=== PATIENT | female | born 1945 | race Caucasian/White ===

== ENCOUNTER → 2017-11-15 | Outpatient (CLI) | payer MEDICARE, OTHER ==
[~2017-11-15] MED LIST: ADULT LOW DOSE81 MG PO; ANCEF 1GM1 GM/50 M2 IV; CELEXA40 MG PO; COUMADIN; COUMADIN 1MG TAB1 M1 PO; COUMADIN 4 MG TA4 M1 PO; COUMADIN 5 MG TA5 M1 PO; COUMADIN6 MG PO; DOXYCYCLINE 10100 M1 PO; ENOXAPARIN40 MG/0.4 SQ; ENOXAPARIN60 MG/0.6 SQ; FOSAMAX 70 MG T70 M1 PO; FOSAMAX 70 MG T70 MG PO; IMURAN 50MG TAB50 M1 PO; IRON325 PO; KETOCONAZOLE 2200 MG GT; KETOCONAZOLE 2200 MG OR; KLOR-CON PO; LASIX 20 MG TAB20 MG PO; LISINOPRIL-HCT1 EAC1 PO; MAG-OX 400 TAB400 M1 PO; METFORMIN HCL500 MG PO; NORCO 5-325 TA1 EACH PO; NORVASC 5 MG TAB5 MG PO; NORVASC5 MG PO; OXYBUTYNIN 5 MG5 M2 PO; OXYCODONE HCL 55 MG PO; PHENERGAN 25 MG25 M1 PO; PLAVIX 75 MG TA75 MG PO; PREDNISONE 20 M20 M1 PO; PREDNISONE 20 M20 MG PO; PRINZIDE 20-121 EACH PO; PROTONIX40 M1 PO; PROTONIX40 M2 PO; REGLAN; REGLAN 10 MG TA10 MG PO; SORIATANE10 MG; VICODIN 5-5001 EACH PO; ZOCOR 20 MG TAB20 M1 PO; ZOCOR20 MG PO; ZOFRAN ODT4 MG PO; warfarin
[2017-11-15 12:38] LABS: CREATININE 0.9 mg/dL (0.6-1.3)
--- NOTE | 2017-12-18 15:00 | NUR ---
ORDER RECEIVED TO DISHCARE PATIENT TO SELF CARE AT HOME. MED REC, MEDICATION EDUCATION, STROKE EDUATION AND NEED FOR FOLLOW UP APPOINTMENTS COVERED AND STATED UNDERSTOOD BY PATIENT. IV AND TELEMETRY PACK REMOVED AND PATINET IN NO APPARNET SIGNS OF DISTRESS. RIGHT GROIN ACCESS SITE CLEAN DRY INTACT WITH NO S/S OF HEMATOMA. LEFT LOWER EXTR PULSES ABLE TO BE ASSESSED BY DOPPLER. VASCULAR SURGERY AWARE AND SIGNED FOR DISHCARGE. PATINET TO DC WHEN FRIEND ARRIVES WITH CAR. HOURLY RONDING COMPLETD FOR PATIENT SAFETY.
== END ==
LOC: M.CT 12:07 → M.LAB 13:00 → M.CT 14:00
PROVIDERS: Surgery
DX: I70.212 Atherosclerosis of native arteries of extremities with intermittent claudication, left leg (principal); Z90.49 Acquired absence of other specified parts of digestive tract

== ENCOUNTER 2017-12-16 17:42 | Inpatient (IN) | payer MEDICARE, OTHER ==
[~2017-12-16] VITALS: Ht 165.1 cm; Wt 54.9 kg
[2017-12-16 18:04] VITALS: BP 116/70
[2017-12-16] MEDS ORDERED: PREDNISONE 20 M20 MG PO (18:10)
[2017-12-16] MEDS ORDERED: COUMADIN 4 MG TA4 M1 PO (18:11)
[2017-12-16] MEDS ORDERED: COUMADIN 5 MG TA5 M1 PO (18:11)
[2017-12-16 18:27] LABS: ABSOLUTE EOSINOPHILS 0.1 thou/uL (0.0-0.7); ABSOLUTE LYMPHOCYTES 1.2 thou/uL (0.8-5.3); ABSOLUTE MONOCYTES 0.7 thou/uL (0.0-1.2); ABSOLUTE NEUTROPHILS 7.2 thou/uL (1.6-8.1); BASOPHILS 0.3 %; EOSINOPHILS 1.2 %; HEMATOCRIT 30.4 % (37.0-47.0); HEMOGLOBIN 9.5 gm/dL (12.0-15.0); LYMPHOCYTES 12.5 %; MCH 21.7 pg (26.0-34.0); MCHC 31.4 g/dL (28.0-37.0); MONOCYTES 7.9 %; MPV 8.1 fl. (7.2-11.1); NUCLEATED RBCS 0 /100WBC; PLATELET COUNT* 254 thou/uL (150-400); POLYS 78.1 %; WBC 9.3 thou/uL (4.0-11.0)
[2017-12-16 18:36] LABS: APTT 30.6 Seconds (25.0-31.3); INR 2.7; PROTIME 26.1 Seconds (9.20-11.50)
[2017-12-16 18:43] LABS: ANION GAP 8 mmol/L (7-16); BUN 16 mg/dL (7-18); CALCIUM 8.9 mg/dL (8.5-10.1); CHLORIDE 105 mmol/L (98-107); CO2 29 mmol/L (21-32); CREATININE 0.9 mg/dL (0.6-1.3); GLUCOSE 120 mg/dL (70-99); SODIUM 142 mmol/L (136-145)
[2017-12-16 18:47] LABS: ALBUMIN 3.2 g/dL (3.4-5.0); ALKALINE PHOSPHATASE 93 U/L (46-116); SGOT 15 U/L (15-37); SGPT 27 U/L (30-65); TOTAL BILIRUBIN 0.4 mg/dL (<0.1-1.0); TOTAL PROTEIN 6.1 g/dL (6.4-8.2); TROPONIN-I LEVEL <0.06 ng/mL (<0.06)
[2017-12-16 19:05] LABS: ANISOCYTOSIS 1+; HYPOCHROMASIA 2+; LARGE PLATELETS OCCASIONAL; MICROCYTES 3+; OVALOCYTES Occasional; PLATELET ESTIMATE ADEQUATE
[2017-12-16 19:47] VITALS: BP 121/76
[2017-12-16 20:30] VITALS: BP 104/66
[2017-12-17 00:08] VITALS: BP 91/57
[2017-12-17 04:00] VITALS: BP 111/64
[2017-12-17 04:38] LABS: HEMATOCRIT 27.6 % (37.0-47.0); HEMOGLOBIN 8.7 gm/dL (12.0-15.0); MCH 21.8 pg (26.0-34.0); MCHC 31.6 g/dL (28.0-37.0); MCV 68.9 fL (80.0-100.0); MPV 8.1 fl. (7.2-11.1); RDW-CV 19.6 % (10.5-14.5); WBC 6.9 thou/uL (4.0-11.0)
[2017-12-17 04:47] LABS: INR 2.3; PROTIME 22.2 Seconds (9.20-11.50)
[2017-12-17 04:55] LABS: CALCIUM 8.4 mg/dL (8.5-10.1); CREATININE 0.8 mg/dL (0.6-1.3); MAGNESIUM 2.1 mg/dL (1.8-2.4); POTASSIUM 3.5 mmol/L (3.5-5.1)
--- NOTE | 2017-12-17 05:30 | NUR ---
RECIEVED REPORT FROM NATHALIA. PATIENT DID NOT SHOW SIGNS OF DISTRESS, PATIENT RESTED IN BED. NO ACUTE CHANGE TO PATIENT. PATIENT HAS NUMBNESS AND DISCOLORATION TO LEFT TOES. CALL TO DOCTOR HERBIE HERNANDEZ, REGARDING DIET ORDER, DOCTOR GAVE OKAY TO EAT BUT NPO PASS MIDNIGHT, DOCTOR ALSO ORDER HEPRAIN DRIP. CALL TO DOCTOR HERNANDEZ REGARDING CLARIFYING MED DUE TO INR, NO REPLY. CALL TO DOCTOR WU REGARDING MED, FULBRIGHT ORDER DRIP BUT NO BOLUS. PATIENT STILL HAS PLUSE IN FOOT. PATIENT DID NOT COMPLAIN OF PAIN OR SOB. CALL TO JAZMIN REGARDING COUMADIN, ORDERED TO HOLD.
[2017-12-17 08:00] VITALS: BP 104/67
[2017-12-17 11:27] VITALS: BP 105/66
--- NOTE | 2017-12-17 13:21 | EKG ---
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1945 Requested By: Stefany Silva Order Number: [id number] MD: Austen Quiroga Measurements Intervals [place] Rate: 102 P: 58 ID: 121 QRS: 21 QRSD: 76 T: 25 QT: 351 QTc: 458 Interpretive Statements Sinus tachycardia Low voltage, precordial leads Abnormal R-wave progression, early transition Borderline T abnormalities, anterior leads Compared to ECG 09/17/2015 15:10:46 T-wave abnormality now present Right ventricular hypertrophy no longer present Electronically Signed On 12-17-2017 13:20:41 CDT by Austen Quiroga [email or web address] <ELECTRONICALLY SIGNED> By: Austen Quiroga MD, FAC 12/17/17 1320 180 1803 Austen Quiroga MD, FAC /EPI
[2017-12-17 16:14] VITALS: BP 111/69
--- NOTE | 2017-12-17 19:34 | NUR ---
benjy resting in bed. left foot assessed frequently and vascular surgical consult completed today. possible angio tomorrow, after reassessment tomorrow. hourlky rounding completed for patient safety.
[2017-12-17 20:00] VITALS: BP 104/65
[2017-12-18] VITALS (8 sets, daily range): BP systolic 103–123; BP diastolic 58–77
--- NOTE | 2017-12-18 03:52 | NUR ---
PATIENT BLOOD SUGAR WAS ELEVATED, DOCTOR KRAIG NOTIFIED, SEE ORDERS.
[2017-12-18 05:06] LABS: HEMATOCRIT 25.8 % (37.0-47.0); HEMOGLOBIN 8.1 gm/dL (12.0-15.0); MCH 21.8 pg (26.0-34.0); MCHC 31.4 g/dL (28.0-37.0); MCV 69.3 fL (80.0-100.0); RBC 3.72 mil/uL (4.20-5.00); RDW-CV 19.7 % (10.5-14.5); WBC 6.1 thou/uL (4.0-11.0)
[2017-12-18 05:08] LABS: INR 1.7; PROTIME 16.1 Seconds (9.20-11.50)
[2017-12-18 05:17] LABS: CALCIUM 7.7 mg/dL (8.5-10.1); CREATININE 0.6 mg/dL (0.6-1.3); POTASSIUM 3.4 mmol/L (3.5-5.1)
--- NOTE | 2017-12-18 05:25 | NUR ---
PATIENT RESTED IN BED. NO ACUTE CHANGES, PATIENT DID NOT SHOW SIGNS OF DISTRESS. PATIENT IS NPO, FALL PRECAUTIONS IN PLACE, BED ALARM ON, CALL LIGHT WITHIN REACH, HOURLY ROUNDING OBSERVED.
--- NOTE | 2017-12-18 06:50 | NUR ---
PATIENT HAD BOWEL MOVEMENT.
--- NOTE | 2017-12-18 16:27 | NUR ---
WOUND NURSE: PATIENT SEEN FOR WOUND ASSESSMENT, BUT NO WOUNDS. DOES HAVE RASH PRESENT ON TRUNK. PATIENT WAS SEEN FOR ARTERIAL COMPLICATIONS ON THE LEFT LEG AND HAS SOME BLUISH-PURPLE DISCOLORATION OF THE LEFT DISTAL FOOT. CAP REFILL IS 3 SECONDS AND ABLE TO DOPPLER POSTERIOR TIBIAL AND DORSALIS PEDIS PULSE. NO WOUND INTERVENTION PROVIDED AT THIS TIME.
--- NOTE | 2018-01-14 15:17 | OP ---
[address] [address] OPERATIVE REPORT Name: ZBIGNIEW DAVID Room: [address] IN .R.#: [id number] Admission: 12/16/17 Attend Phys: David Davis, Discharge: 12/18/17 Date of : 49 Report #: [id number] THIS REPORT FOR: //name// CC: Liliane Davis DATE OF SERVICE: 12/18/2017 PREOPERATIVE DIAGNOSIS: Critical limb ischemia with thrombosis of left superficial femoral artery stents. POSTOPERATIVE DIAGNOSIS: Critical limb ischemia with thrombosis of left superficial femoral artery stents. PROCEDURE: 1. Ultrasound-guided access of right common femoral artery. 2. Diagnostic angiogram of the abdomen, pelvis and left lower extremity. 3. Drug-coated balloon angioplasty of the left superficial femoral artery x 3. 4. Balloon angioplasty of the left popliteal artery. 5. Completion angiogram of the left lower extremity. 6. Percutaneous closure of right common femoral artery with 6-Irish Angio-Seal closure device. SURGEON: Eliceo Rico MD ESTIMATED BLOOD LOSS: Minimal. COMPLICATIONS: None. 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 No clinically significant aortoiliac occlusive disease. High grade stenosis and multiple segments of the left superficial femoral artery stents. A 99% stenosis of behind knee popliteal artery with large atherosclerotic plaque. Patent below knee artery and tibioperoneal trunk with the anterior tibial artery extending down to the level of the ankle and the peroneal artery occluding distal to the ostium, with all of these vessels being severely diseased. DESCRIPTION OF PROCEDURE: The patient is a pleasant female who was recently admitted with skin changes to her toes on the left foot. 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 She has known occlusion of her right common and distal right common femoral artery as well as her left posterior tibial artery. After evaluation, she was offered a diagnostic angiogram. The risks, benefits, alternatives, and possible outcomes were discussed. She elected to proceed. Consent was obtained. The site was marked. She was taken to the OR and placed on the table in supine position. An appropriate timeout was called identifying the correct patient, procedure, [place] [address] OPERATIVE REPORT Name: ZBIGNIEW DAVID Room: [address]#: [id number] Admission: 12/16/17 Attend Phys: David Davis, Discharge: 12/18/17 Date of : 49 Report #: [id number] procedure side. Sedation and local anesthetic were used throughout the entirety of the procedure. Her bilateral groins were prepped and draped in the usual sterile fashion. Local anesthetic was injected with ultrasound guidance. I was able to cannulate the midportion of the right common femoral artery with a micro needle and a microwire. A microsheath was easily placed after appropriate placement was confirmed on fluoroscopy. I then upsized this to a 6-Irish sheath over a Glidewire Advantage. I introduced the flush catheter into the distal aorta and performed an aortogram. This showed a patent distal aorta with patent iliac arteries bilaterally with no evidence of clinically significant stenosis. I was able to traverse the aortic bifurcation with the flush catheter and Glidewire Advantage. A left lower extremity angiogram was performed. This showed high-grade in-stent stenosis of the left SFA with a 99% stenosis in the left popliteal artery due to an atherosclerotic plaque and a very poor runoff. Systemic heparin was given at this time. I exchanged from a short 6-Irish sheath for an up and over 45 cm 6-Irish sheath. This was parked in the left superficial femoral artery just distal to the ostium. I was able to traverse the in-stent stenosis as well as the left popliteal artery lesion with a Glidewire Advantage and vertebral catheter. At this point, I treated the in-stent stenosis with three separate 6 mm Lutonix drug-coated balloons. Each was inflated for a total of 3 minutes. Repeat angiography revealed resolution of the in-stent stenosis. I was then able to angioplasty the popliteal artery lesion with a 3 mm angioplasty balloon. This was a very resilient lesion and moderate stenosis remained. Her [place] creek arteries are extremely small and diseased and due to my concern of causing a flow limiting dissection and not having a stent small enough to place in her distal vasculature, I concluded that what resolution of the stenosis I have gained was adequate at this time. Repeat angiography did show significantly increased flow in the left anterior tibial artery and peroneal artery. At this time, I retracted my sheath into the right common femoral artery. I performed an angiogram in the KIMBALL position. This confirmed the common femoral artery stick. I elected to place an Angio-Seal closure device at the insertion site, which was just proximal to her already known clinical stenosis. This yielded hemostasis. Sterile dressing was placed. At the end of the procedure, she had a dorsalis pedis and a posterior tibial artery signal, which were increased in strength from preoperatively. She was transferred to the PACU for monitoring before being transferred back to the white. She tolerated the procedure well with no complications being appreciated immediately postoperatively. <ELECTRONICALLY SIGNED> By: Luis E Pisano DO 01/14/18 1517 1955 MD nico Mace
== END 2017-12-18 16:10 | disposition home or self-care (01) | DRG 252 ==
LOC: M.ERS 17:42 → M.TBA-ER 18:25 → M.2W 18:25
PROVIDERS: Physician Assistant; ADMIT Family Medicine
PROC: B41G1ZZ Fluoroscopy of Left Lower Extremity Arteries using Low Osmolar Contrast (ICD-10-PCS; principal; 2017-12-18)
PROC: 047L3Z1 Dilation of Left Femoral Artery using Drug-Coated Balloon, Percutaneous Approach (ICD-10-PCS; principal; 2017-12-18)
PROC: B4101ZZ Fluoroscopy of Abdominal Aorta using Low Osmolar Contrast (ICD-10-PCS; principal; 2017-12-18)
PROC: B41C1ZZ Fluoroscopy of Pelvic Arteries using Low Osmolar Contrast (ICD-10-PCS; principal; 2017-12-18)
PROC: 047N3ZZ Dilation of Left Popliteal Artery, Percutaneous Approach (ICD-10-PCS; principal; 2017-12-18)
DX: T82.856A Stenosis of peripheral vascular stent, initial encounter (principal); N18.6 End stage renal disease; I77.1 Stricture of artery; E11.51 Type 2 diabetes mellitus with diabetic peripheral angiopathy without gangrene; E87.6 Hypokalemia; D64.9 Anemia, unspecified; E11.621 Type 2 diabetes mellitus with foot ulcer; L97.529 Non-pressure chronic ulcer of other part of left foot with unspecified severity; Y83.8 Other surgical procedures as the cause of abnormal reaction of the patient, or of later complication, without mention of misadventure at the time of the procedure; Z90.49 Acquired absence of other specified parts of digestive tract; Z98.42 Cataract extraction status, left eye; Z98.41 Cataract extraction status, right eye; Z86.718 Personal history of other venous thrombosis and embolism; Z89.611 Acquired absence of right leg above knee; Z79.899 Other long term (current) drug therapy; Z79.01 Long term (current) use of anticoagulants; Z88.8 Allergy status to other drugs, medicaments and biological substances; Z88.2 Allergy status to sulfonamides; Y92.89 Other specified places as the place of occurrence of the external cause

== ENCOUNTER → 2018-02-28 | Outpatient (CLI) | payer MEDICARE, OTHER | LOC: M.WC 07:29 | DX: E11.622 Type 2 diabetes mellitus with other skin ulcer (principal); I70.242 Atherosclerosis of native arteries of left leg with ulceration of calf; L97.221 Non-pressure chronic ulcer of left calf limited to breakdown of skin; E11.621 Type 2 diabetes mellitus with foot ulcer; I70.244 Atherosclerosis of native arteries of left leg with ulceration of heel and midfoot; L97.421 Non-pressure chronic ulcer of left heel and midfoot limited to breakdown of skin; E11.51 Type 2 diabetes mellitus with diabetic peripheral angiopathy without gangrene; E11.40 Type 2 diabetes mellitus with diabetic neuropathy, unspecified; I10 Essential (primary) hypertension; M21.372 Foot drop, left foot; K21.9 Gastro-esophageal reflux disease without esophagitis ==

== ENCOUNTER → 2018-03-07 | Outpatient (CLI) | payer MEDICARE, OTHER | LOC: M.WC 02:59 | DX: E11.622 Type 2 diabetes mellitus with other skin ulcer (principal); I87.332 Chronic venous hypertension (idiopathic) with ulcer and inflammation of left lower extremity; I70.242 Atherosclerosis of native arteries of left leg with ulceration of calf; L97.221 Non-pressure chronic ulcer of left calf limited to breakdown of skin; E11.621 Type 2 diabetes mellitus with foot ulcer; I70.244 Atherosclerosis of native arteries of left leg with ulceration of heel and midfoot; L97.521 Non-pressure chronic ulcer of other part of left foot limited to breakdown of skin; E11.51 Type 2 diabetes mellitus with diabetic peripheral angiopathy without gangrene; E11.40 Type 2 diabetes mellitus with diabetic neuropathy, unspecified; I10 Essential (primary) hypertension; M21.372 Foot drop, left foot; K21.9 Gastro-esophageal reflux disease without esophagitis ==

== ENCOUNTER → 2018-03-14 | Outpatient (CLI) | payer MEDICARE, OTHER | LOC: M.WC 04:08 | DX: E11.622 Type 2 diabetes mellitus with other skin ulcer (principal); I87.332 Chronic venous hypertension (idiopathic) with ulcer and inflammation of left lower extremity; I70.242 Atherosclerosis of native arteries of left leg with ulceration of calf; L97.221 Non-pressure chronic ulcer of left calf limited to breakdown of skin; E11.621 Type 2 diabetes mellitus with foot ulcer; I70.244 Atherosclerosis of native arteries of left leg with ulceration of heel and midfoot; L97.421 Non-pressure chronic ulcer of left heel and midfoot limited to breakdown of skin; E11.51 Type 2 diabetes mellitus with diabetic peripheral angiopathy without gangrene; E11.40 Type 2 diabetes mellitus with diabetic neuropathy, unspecified; K21.9 Gastro-esophageal reflux disease without esophagitis; M21.372 Foot drop, left foot; Z89.611 Acquired absence of right leg above knee ==

== ENCOUNTER → 2018-03-21 | Outpatient (CLI) | payer MEDICARE, OTHER | LOC: M.WC 03:21 | DX: E11.622 Type 2 diabetes mellitus with other skin ulcer (principal); I70.242 Atherosclerosis of native arteries of left leg with ulceration of calf; L97.221 Non-pressure chronic ulcer of left calf limited to breakdown of skin; E11.621 Type 2 diabetes mellitus with foot ulcer; I70.244 Atherosclerosis of native arteries of left leg with ulceration of heel and midfoot; I87.332 Chronic venous hypertension (idiopathic) with ulcer and inflammation of left lower extremity; L97.421 Non-pressure chronic ulcer of left heel and midfoot limited to breakdown of skin; E11.51 Type 2 diabetes mellitus with diabetic peripheral angiopathy without gangrene; E11.40 Type 2 diabetes mellitus with diabetic neuropathy, unspecified; K21.9 Gastro-esophageal reflux disease without esophagitis; Z89.611 Acquired absence of right leg above knee ==

== ENCOUNTER 2019-07-18 06:33 | Inpatient (IN) | payer MEDICARE, OTHER ==
[~2019-07-18] VITALS: Ht 165.1 cm; Wt 47.2 kg
[~2019-07-18 06:33] MED LIST changes: +COUMADIN 2 MG TA2 M1 PO; +LISINOPRIL20 MG PO; +NORCO 5-325 TA1 EAC1 PO; +PREDNISONE 10 M10 MG PO
[2019-07-18 08:36] LABS: HEMATOCRIT 34.2 % (37.0-47.0); HEMOGLOBIN 10.9 gm/dL (12.0-15.0); MCH 24.9 pg (26.0-34.0); MCV 77.9 fL (80.0-100.0); MPV 7.3 fl. (7.2-11.1); NUCLEATED RBCS 0 /100WBC; PLATELET COUNT* 296 thou/uL (150-400); RBC 4.39 mil/uL (4.20-5.00); RDW-CV 17.5 % (10.5-14.5); WBC 5.5 thou/uL (4.0-11.0)
[2019-07-18 08:43] LABS: CALCIUM 9.2 mg/dL (8.5-10.1); CREATININE 0.8 mg/dL (0.6-1.3); POTASSIUM 3.1 mmol/L (3.5-5.1)
[2019-07-18 08:46] LABS: APTT 24.2 Seconds (25.0-31.3); INR 1.2; PROTIME 12.3 Seconds (9.20-11.50)
[2019-07-18 09:24] LABS: ABSOLUTE LYMPHOCYTES 0.3 thou/uL (0.8-5.3); ABSOLUTE MONOCYTES 0.1 thou/uL (0.0-1.2); ABSOLUTE NEUTROPHILS 5.1 thou/uL (1.6-8.1); ANISOCYTOSIS 1+; PLATELET ESTIMATE ADEQUATE; POIKILOCYTOSIS 1+; POLYCHROMASIA Occasional
--- NOTE | 2019-07-18 15:17 | EKG ---
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: JSANNETTE : 1945 Requested By: Mitchell Francisco Order Number: [id number] Judit MD: Yohan Stone Measurements Intervals [place] Rate: 79 P: 55 AL: 140 QRS: -20 QRSD: 72 T: -4 QT: 431 QTc: 495 Interpretive Statements Sinus rhythm Inferior infarct, old Compared to ECG 12/16/2017 18:03:11 Myocardial infarct finding now present Sinus tachycardia no longer present T-wave abnormality no longer present Electronically Signed On 07-18-2019 15:17:36 NOTCH MACHINE OPERATOR by Yohan Stone [email or web address] <ELECTRONICALLY SIGNED> By: Yohan Stone MD, [facility] 07/18/19 1517 0938 0938 Yohan Stone MD, [facility] /EPI
--- NOTE | 2019-07-18 15:27 | EKG ---
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1945 Requested By: Rena Mercedes Order Number: [id number] Judit MD: Yohan Stone Measurements Intervals [place] Rate: 105 P: 45 [place]: 135 QRS: 2 QRSD: 92 T: -7 QT: 356 QTc: 471 Interpretive Statements Sinus tachycardia Low voltage, extremity and precordial leads Nonspecific T abnormalities, anterior leads Compared to ECG 12/16/2017 18:03:11 rate increased Electronically Signed On 07-18-2019 15:26:34 LINE UP MACHINE OPERATOR by Yohan Stone [email or web address] <ELECTRONICALLY SIGNED> By: Yohan Stone MD, [facility] 07/18/19 1526 1342 1342 Yohan Stone MD, [facility] /EPI
--- NOTE | 2019-07-18 19:55 | NUR ---
PATIENT ARRIVED TO UNIT AT APPROX 1300. ALERT AND ORIENTED X4. PAIN MANAGED WITH MORPHINE VIA CHEMICAL PROCESSOR PUMP. NO OTHER COMPLAINTS. DRESSING TO LEFT LEG STUMP IS CLEAN, DRY, AND INTACT. PATIENT USING BEDPAN FOR VOIDING. NO OTHER COMPLAINTS THIS SHIFT. FALL PRECAUTIONS IN PLACE. CALL LIGHT WITHIN REACH. HOURLY ROUNDS COMPLETED. WILL CONTINUE WITH PLAN OF CARE.
[2019-07-18 20:00] VITALS: BP 109/57
[2019-07-19 00:08] VITALS: BP 110/53
[2019-07-19 04:09] LABS: HEMATOCRIT 21.6 % (37.0-47.0); MCH 25.2 pg (26.0-34.0); MCV 78.6 fL (80.0-100.0); MPV 8.1 fl. (7.2-11.1); NUCLEATED RBCS 0 /100WBC; RBC 2.75 mil/uL (4.20-5.00); RDW-CV 17.1 % (10.5-14.5); WBC 10.5 thou/uL (4.0-11.0)
[2019-07-19 04:15] VITALS: BP 104/56
[2019-07-19 04:20] LABS: CREATININE 0.7 mg/dL (0.6-1.3); POTASSIUM 3.3 mmol/L (3.5-5.1)
[2019-07-19 04:39] LABS: PLATELET COUNT* 213 thou/uL (150-400)
[2019-07-19 04:40] LABS: HEMOGLOBIN 6.9 gm/dL (12.0-15.0)
[2019-07-19 04:42] LABS: ABSOLUTE LYMPHOCYTES 0.5 thou/uL (0.8-5.3); ABSOLUTE MONOCYTES 0.8 thou/uL (0.0-1.2); ABSOLUTE NEUTROPHILS 9.3 thou/uL (1.6-8.1); LYMPHOCYTES 4.4 %; MONOCYTES 7.2 %; POLYS 88.3 %
[2019-07-19 04:43] LABS: BASOPHILS 0.1 %
--- NOTE | 2019-07-19 07:48 | NUR ---
Oriented x 4 but has been drowsy this shift L above the knee amputation compression acewrap dresing is dry and intact with prevena wound vac. Vitals have been stable. She has morphine plastic finisher and has only used 8 mg since she arrived to the floor yesterday. This am her hemoglobin is critical at 6.9 Dr Mercedes ordered PRBC's. New IV started in her rt upper arm. She has slept well.
[2019-07-19 08:10] VITALS: BP 124/58
[2019-07-19 09:15] VITALS: BP 106/67; BP 107/64; BP 108/66; BP 128/78; BP 136/60
--- NOTE | 2019-07-19 11:00 | NUR ---
SPOKE WITH PT. SHE WAS ALERT AND ORIENTED. STATED SHE LIVES ALONE. SHE GETS ALONG JUST FINE. SHE SAID SHE FEELS SHE WILL DO GOOD AT HOME TOO ONCE SHE LEARNS HOW TO TRANSFER TO HER . SHE DOES HAVE A GOOD FRIEND THAT STAYED WITH HER ONCE AFTER SHE DISCHARGED FROM THE HOSPITAL. PT.SAID SHE WOULD BE INTERRESTED IN GOING TO INP.ACUTE REHAB IF THEY WOULD ACCEPT HER. DISCUSSED WITH DR.DE LAURO ZALDIVAR AND INPT.REHAB EVAL ORDERED. CM WILL FOLLOW.
[2019-07-19 16:00] VITALS: BP 107/51
--- NOTE | 2019-07-19 16:31 | OP ---
[facility] [address] [place] [address] OPERATIVE REPORT Name: ZBIGNIEW DAVID Room: [address] IN M.R.#: [id number] Admission: 07/18/19 Attend Phys: Emerald Jmi Discharge: Date of : 49 Report #: [id number] THIS REPORT FOR: //name// CC: Liliane Pascual DATE OF SERVICE: 07/18/2019 PREOPERATIVE DIAGNOSIS: Chronic ischemic ulcers, left foot. POSTOPERATIVE DIAGNOSIS: Chronic ischemic ulcers, left foot. PROCEDURE: Left above knee amputation. COMPLICATIONS: None. ESTIMATED BLOOD LOSS: 100 mL. SPECIMEN: Includes left leg. DRAWBRIDGE TENDER: PRASANTH Cruz COMPLICATIONS: None. ANESTHESIA: General. INDICATIONS FOR PROCEDURE: The patient is a very pleasant 73-year-old white female, well known to our service. She is status post right above-knee amputation for ischemic leg. She has had chronic nonhealing ischemic ulcer of the left foot. She has no further revascularization options. We have discussed with her left above-knee amputation and she is now agreeable to this. Informed consent was obtained with risks including but not limited to bleeding, infection, need for further surgery, pain, , heart attack, stroke, or higher amputation. She understood these risks and was agreeable to proceed. DESCRIPTION OF PROCEDURE: The patient was taken to the OR and placed in supine position. General anesthesia was initiated, timeout was performed. The left leg was circumferentially prepped and draped in the usual sterile fashion. I created a fishmouth incision on the patient's left distal thigh just above the knee. Sharp and blunt dissections were carried down to the femur. Periosteal elevator was used to remove the soft tissue of the femur. The femur was divided with a bone saw. Remainder of the soft tissue was divided to remove the leg. Specimen was passed off the field. We tied off the neurovascular bundle with a 2-0 silk suture ligature. We controlled all other bleeding vessels as needed with electrocautery, ties and clips. I [place] [address] OPERATIVE REPORT Name: ZBIGNIEW DAVID Room: [address] IN [facility].#: [id number] Admission: 07/18/19 Attend Phys: Emerald iJm Discharge: Date of : 49 Report #: [id number] saline 1 liter. We then closed the defect in multiple layers using 2-0 Vicryl, 3-0 Vicryl, and espinoza for the skin. Incision was dressed with Prevena VAC. The patient tolerated the procedure well. She was taken alert and awake to recovery room in good condition. All needle and instrument counts were correct. <ELECTRONICALLY SIGNED> By: Emil Fleming MD, FACS 07/19/19 1631 1046 1312RMD nico Moreira
--- NOTE | 2019-07-19 18:25 | NUR ---
ASSUMED CARE OF PATIENT AT APPROX 0730. ALERT AND ORIENTED X4. ASSESSMENT COMPLETED AND CHARTED. VSS ON 2 LITERS 02, TITRATED DOWN TO ROOM AND REMIANS STABLE. PAIN MANAGED WITH MORPHINE VIA DETAILER FURNITURE PUMP. FLUIDS INFUSED ORDERED. PATIENT USING BEDPAN FOR VOIDING, NO BM YET. DRESSING TO LLE STUMP IS CLEAN, DRY, AND INTACT. NO OTHER COMPLAINTS. FALL PRECAUTIONS IN PLACE. CALL LIGHT WITHIN REACH. HOURLY ROUNDS COMPLETED. WILL CONTINUE WITH PLAN OF CARE.
[2019-07-19 19:21] LABS: HEMATOCRIT 27.1 % (37.0-47.0); HEMOGLOBIN 8.8 gm/dL (12.0-15.0)
[2019-07-19 20:30] VITALS: BP 120/61
[2019-07-20] VITALS: BP 178/84
[2019-07-20 00:35] VITALS: BP 129/73
--- NOTE | 2019-07-20 05:47 | NUR ---
PAIN WELL CONTROLLED BY MORPHINE VIA BEHAVIORAL GENETICIST PUMP. NO C/O NAUSEA OR VOMITING. DRESSING TO LT STUMP C/D/I. WOUND VAC IN PLACE. IV FLUID RUNNING ORDERED. CALL LIGHT WITHIN REACH. HOURLY ROUNDINGS COMPLETED. WILL CONINUE TO MONITOR.
[2019-07-20 09:42] LABS: PROTIME 10.2 Seconds (9.20-11.50)
[2019-07-20 09:50] VITALS: BP 156/75
--- NOTE | 2019-07-20 15:35 | NUR ---
PT PROGRESSING TOWARDS GOALS THIS SHIFT. PT ENCOURAGED TO USE ORAL PAIN MEDICATION FOR PAIN MANAGEMENT THIS SHIFT. PT HAS TO BE REMINDED TO ASK FOR ORAL PAIN MEDICATION WHEN NEEDED. PT REPORTS EFFECTIVE PAIN MANAGEMENT WITH ORAL MEDS, ALTHOUGH REMAINS ON BASAL RATE END STAPLER PUMP AND STATES SHE PUSHED FOR MORPHINE BOLUS "ONCE OR TWICE". PT STATES SHE PUSHED END STAPLER PUMP BUTTON BECAUSE SHE THOUGHT THERAPY WOULD BE COMING. PT STATES SHE WAS NOT HAVING INCREASED PAIN AT THE TIME. LIDOCAIN PATCH USED TO AID WITH PAIN MANAGEMENT WELL. POTASSIUM REPLACED PER PROTOCOL. NO OTHER CONCERNS AT THIS TIME. CLWR. WCTM.
[2019-07-20 20:00] VITALS: BP 149/80
[2019-07-21 04:00] VITALS: BP 150/73
[2019-07-21 04:32] LABS: HEMATOCRIT 27.5 % (37.0-47.0); HEMOGLOBIN 8.9 gm/dL (12.0-15.0); MCH 26.7 pg (26.0-34.0); MCHC 32.5 g/dL (28.0-37.0); MCV 82.2 fL (80.0-100.0); MPV 8.2 fl. (7.2-11.1); RBC 3.35 mil/uL (4.20-5.00); RDW-CV 17.7 % (10.5-14.5); WBC 6.8 thou/uL (4.0-11.0)
[2019-07-21 04:48] LABS: CALCIUM 8.9 mg/dL (8.5-10.1); CREATININE 0.7 mg/dL (0.6-1.3); MAGNESIUM 1.9 mg/dL (1.8-2.4); POTASSIUM 3.8 mmol/L (3.5-5.1)
[2019-07-21 05:01] LABS: PROTIME 10.1 Seconds (9.20-11.50)
--- NOTE | 2019-07-21 07:40 | NUR ---
Alert and oriented x 4. L stump acewrap dressing intact with prevena woundvac in place. She is using the bedpan to void and rolls well and moves well in the bed. Continues to have this chronic dermatitis rash on her abdomen and groin and thighs. She states she takes a steroid cream or something for it, it is caused by stress she states. Morhine DROP PIT WORKER has a basal rate of 0.5 mg per hr. and she has used the bolus dose about 4 times. Oral pain meds given x 2. She doesn't sleep much she awakens frequently.
--- NOTE | 2019-07-21 15:10 | NUR ---
PT PROGRESSING TOWARDS GOALS THIS SHIFT. MORPHINE ALLIED HEALTH TEACHER DC'D THIS AM. PT PAIN MANAGED WITH PRN NORCO, ULTRAM, AND LIDOCAINE PATCH. NO OTHER CONCERNS AT THIS TIME. CLWR. WCTM.
[2019-07-21 20:00] VITALS: BP 161/91
[2019-07-22] VITALS: BP 141/88
[2019-07-22 04:00] VITALS: BP 192/84
[2019-07-22 06:10] VITALS: BP 172/103
--- NOTE | 2019-07-22 06:52 | NUR ---
Alert and oriented x 4. Acewrap dressing to L stump clean,dry and intact with prevena woundvac in place.She has had oral pain meds x 3 this shift and morphine x 1. BP was elevated and am amlodipine 5 mg given early. Rechecked at 0610 and BP is still elevated. Message sent to Dr Pascual.
[2019-07-22 08:02] VITALS: BP 138/90
--- NOTE | 2019-07-22 14:36 | NUR ---
PT.STILL HAVING A SIGNIFICANT AMOUNT OF PAIN. ENCOURAGED TO TAKE ORAL PAIN MEDS. PREEVENA WOUND VAC REMAINS IN PLACE. VASCULAR PLANS TO LEAVE WOUND VAC ON 5-7 DAYS POST SURGERY (07/23 OR 07/24). AWAITING THERAPY FOLLOW UPS AND 'S DECISION ABOUT INPT.REHAB.
--- NOTE | 2019-07-22 15:07 | PATH ---
[address] [address] PATHOLOGY RPT PROCEDURE Name: MAR DAVID Room: [facility] IN M.R.#: [id number] Admission: 07/18/19 Date of : 49 Discharge: Report #: [id number] Path Case #: [id number] LCA Accession Number: [id number] . 01 Material submitted: . leg - LEFT LEG ABOVE KNEE AMPUTATION. Modifiers: left . 01 Clinical history: . Arthrosclerosis left leg with ulceration foot . 02 Diagnosis: Left above knee amputation: - Benign left lower extremity with evidence of prior forefoot amputation, necrosis of soft tissues at distal aspect of forefoot, several nonspecific deep ulcerations of foot and diffuse severe calcifying arteriosclerosis of anterior and posterior tibial arteries. - Grossly identified vascular stent in proximal popliteal artery. (TIM:angel; 07/22/2019) QTP 07/22/2019 1256 Local . 02 Electronically signed: . Jonatan Parks MD, Pathologist NPI- [id number] . 01 Gross description: . The specimen is received fresh in a red biohazard bag, labeled "Mar David, left above knee amputation" and consists of a left above the knee amputation specimen that is status post fore foot amputation. It measures 47.0 cm heel to proximal skin soft tissue margin and 14.6 cm heel to distal foot. Protruding from the proximal margin is the femur measuring 9.0 cm in length and 2.6 cm in width. All 5 toes are absent with the distal aspect of the foot showing gangrenous ulceration measuring 4.5 x 1.5 cm. Present on the back of the heel is a mummified ulceration measuring 2.6 x 2.2 cm. There is a pink scar on the anterior lateral padgett measuring 15.0 cm in length. No additional lesions are identified. There is a stent at the proximal popliteal artery. Distal to the stent the anterior/posterior tibial vasculatures display markedly stenotic calcified lumens. Watch And Clock Repair Clerk sections are submitted as follows: . A1: Distal foot and back of heel lesions A2: Skin soft tissue margin A3: Anterior/posterior tibial vasculature and dorsalis pedis following decalcification (SDY; 07/19/2019) SYU/SYU 07/19/2019 1621 Local . 02 Pathologist provided ICD-10: I70.249 [place] [address] PATHOLOGY RPT PROCEDURE Name: MAR DAVID ALEJANDRA Room: [address] IN ..#: [id number] Admission: 07/18/19 Date of : 49 Discharge: Report #: [id number] Path Case #: [id number] . 02 CPT . [id number], [id number] Specimen Comment: A courtesy copy of this report has been sent to [phone] Specimen Comment: [phone], Specimen Comment: Report sent to , and Performed at: [address] [facility], [place], [place] [id number] MD Yimi Villa MD Phone: [phone] Performed at: [facility] [address], [place], [place] [id number] MD Jonatan Parks MD Phone: [phone]
[2019-07-22 15:39] VITALS: BP 132/90
--- NOTE | 2019-07-22 17:22 | NUR ---
PT A&Ox4. VITALS STABLE. IV PATENT. PAIN CONTROLLED WITH NORCO. DENIED NAUSEA. TOLERATING DIET. UP TO WHEELCHAIR WITH THERAPY. DRESSING C/D/I. WOUND VAC IN PLACE. CALL LIGHT WITHIN REACH. FALL PRECAUTIONS IN PLACE. WILL CONTINUE TO MONITOR.
[2019-07-22 22:00] VITALS: BP 151/90
[2019-07-23 04:11] LABS: HEMATOCRIT 31.5 % (37.0-47.0); HEMOGLOBIN 10.4 gm/dL (12.0-15.0); MCH 26.9 pg (26.0-34.0); MCHC 33.1 g/dL (28.0-37.0); MCV 81.4 fL (80.0-100.0); MPV 8.1 fl. (7.2-11.1); NUCLEATED RBCS 0 /100WBC; PLATELET COUNT* 231 thou/uL (150-400); RBC 3.87 mil/uL (4.20-5.00); WBC 7.5 thou/uL (4.0-11.0)
[2019-07-23 04:29] LABS: CALCIUM 9.2 mg/dL (8.5-10.1); CREATININE 0.7 mg/dL (0.6-1.3); POTASSIUM 3.8 mmol/L (3.5-5.1); PROTIME 10.6 Seconds (9.20-11.50)
[2019-07-23 06:03] LABS: ABSOLUTE EOSINOPHILS 0.1 thou/uL (0.0-0.7); ABSOLUTE LYMPHOCYTES 0.8 thou/uL (0.8-5.3); ABSOLUTE MONOCYTES 0.5 thou/uL (0.0-1.2); ABSOLUTE NEUTROPHILS 6.2 thou/uL (1.6-8.1); METAMYELOCYTES 1 %; MYELOCYTES 1 %; PLATELET ESTIMATE ADEQUATE
[2019-07-23 06:04] LABS: ANISOCYTOSIS 1+; POIKILOCYTOSIS 1+; POLYCHROMASIA 1+
--- NOTE | 2019-07-23 06:32 | NUR ---
PATIENT HAS SLEPT WELL THROUGHOUT THE NIGHT. VSS ON RA. PAIN MEDICATION GIVEN NEEDED AND CHARTED. PATIENT USING BEDPAN DURING THE NIGHT. DRESSING TO LEFT STUMP IS C/D/I. IV IN LEFT FOREARM-SL. PATIENT INSTRUCTED TO USE CALL LIGHT WHEN NEEDING ASSISTANCE. HOURLY ROUNDS MADE. WILL CONTINUE WITH PLAN OF CARE AND NURSING TO MONITOR.
[2019-07-23 08:00] VITALS: BP 119/80
[2019-07-23 16:00] VITALS: BP 126/72
--- NOTE | 2019-07-23 18:56 | NUR ---
ASSUMED CARE OF PATIENT AT APPROX 0730. ALERT AND ORIENTED X4. ASSESSMENT COMPLETED AND CHARTED. VSS ON ROOM AIR. PAIN MANAGED WITH ORAL NORCO AND TRAMADOL. ACCUCHECKS AND INSULIN GIVEN ORDERED. UP WITH ASSIST USING SLIDE BOARD TO WHEELCHAIR. NO OTHER COMPLAINTS THIS SHIFT. FALL PRECAUTIONS IN PLACE. CALL LIGHT WITHIN REACH. HOURLY ROUNDS COMPLETED. WILL CONTINUE WITH PLAN OF CARE.
[2019-07-23 20:30] VITALS: BP 125/87
[2019-07-24 05:28] LABS: INR 1.1; PROTIME 11.4 Seconds (9.20-11.50)
--- NOTE | 2019-07-24 06:48 | NUR ---
PATIENT HAS SLEPT WELL THROUGHOUT THE NIGHT. VSS ON RA. MEDICATIONS GIVEN ORDERED AND CHARTED. PATIENT USES BEDPAN AT NIGHT. DRESSING TO LEFT STUMP IS C/D/I. PROVENA WOUND VAC IN PLACE WITH MINIMAL DRAINAGE. IV IN LEFT FOREARM-SL. PATIENT INSTRUCTED TO USE CALL LIGHT WHEN NEEDING ASSISTANCE. HOURLY ROUNDS MADE. WILL CONTINUE WITH PLAN OF CARE AND NURSING TO MONITOR.
[2019-07-24 08:33] VITALS: BP 149/82
[2019-07-24] MEDS ORDERED: TRAMADOL 50 MG50 MG PO (14:12)
[2019-07-24] MEDS ORDERED: LOVENOX40 MG/0.4 SUBQ (14:19)
[2019-07-24 14:22] VITALS: BP 149/82
--- NOTE | 2019-07-24 15:34 | NUR ---
PER KITA/REHAB LIASON, PT.CAN BE ADMITTED TO INPT.REHAB UNIT TODAY. SHE WILL CALL CM OR NURSING UNIT WITH ROOM NUMBER AND TIME OF WHEN SHE CAN UPSTAIRS. PT.INFORMED.
--- NOTE | 2019-07-24 16:15 | NUR ---
ASSUMED CARE OF PT THIS AM. REFER TO ASSESSMENT. PT PRN HYDROCODONE INCREASED TO Q4H THIS SHIFT D/T DIFFICULTY WITH PAIN MANAGEMENT. PT PARTICIPATING WITH PT/OT. REFER TO NOTES. PT TRANSFERRING TO REHAB THIS EVENING. AWAITING TIME FOR TRANSFER. WILL GIVE REPORT TO RECEIVING RN. NO OTHER CONCERNS AT THIS TIME. CLWR. WCTM.
--- NOTE | 2019-07-24 17:09 | NUR ---
REPORT GIVEN TO CUSTOMER ACQUISITION SPECIALIST. WAITING FOR PT TO FINISH DINNER THEN WILL TRANSFER PT TO REHAB.
== END 2019-07-24 17:35 | DRG 240 ==
LOC: M.PRE 06:33 → M.SUR 07:04 → EDSTATUS 07:05 → M.PRE 07:09 → M.ORTHSURG 08:00 → M.TBA 08:00 → M.PRE 08:44 → M.ORTHSURG 13:11
PROVIDERS: Family Medicine; Internal Medicine; Physician Assistant Surgical; Surgery Vascular Surgery; ADMIT Internal Medicine
PROC: 0Y6D0Z3 Detachment at Left Upper Leg, Low, Open Approach (ICD-10-PCS; principal; 2019-07-18)
PROC: 30233N1 Transfusion of Nonautologous Red Blood Cells into Peripheral Vein, Percutaneous Approach (ICD-10-PCS; 2019-07-19)
DX: I70.241 Atherosclerosis of native arteries of left leg with ulceration of thigh (principal); D62 Acute posthemorrhagic anemia; L97.529 Non-pressure chronic ulcer of other part of left foot with unspecified severity; E78.5 Hyperlipidemia, unspecified; F32.9 Major depressive disorder, single episode, unspecified; I12.9 Hypertensive chronic kidney disease with stage 1 through stage 4 chronic kidney disease, or unspecified chronic kidney disease; I65.29 Occlusion and stenosis of unspecified carotid artery; E87.6 Hypokalemia; N18.2 Chronic kidney disease, stage 2 (mild); Z86.718 Personal history of other venous thrombosis and embolism; Z88.1 Allergy status to other antibiotic agents; Z88.0 Allergy status to penicillin; Z91.048 Other nonmedicinal substance allergy status; Z79.01 Long term (current) use of anticoagulants; Z79.84 Long term (current) use of oral hypoglycemic drugs; Z79.891 Long term (current) use of opiate analgesic; Z79.899 Other long term (current) drug therapy; Z82.49 Family history of ischemic heart disease and other diseases of the circulatory system; Z83.3 Family history of diabetes mellitus; Z23 Encounter for immunization

== ENCOUNTER 2019-07-24 15:34 | Inpatient (IN) | payer MEDICARE, OTHER ==
[~2019-07-24] VITALS: Ht 96.5 cm; Wt 51.3 kg
[~2019-07-24 15:34] MED LIST changes: +LOVENOX40 MG/0.4 SUBQ; +TRAMADOL 50 MG50 MG PO
[2019-07-24 19:00] VITALS: BP 125/72
--- NOTE | 2019-07-24 19:31 | NUR ---
PATIENT ARRIVED TO ROOM AT 1844. ALERT AND ORIENTED X4. ORIENTED TO ROOM AND BED CONTROLS. CALL LIGHT WITHIN REACH.
[2019-07-24 20:20] VITALS: BP 143/75
--- NOTE | 2019-07-24 23:17 | NUR ---
PATIENT ARRIVED ON DAY SHIFT FROM ROOM 114 AT 1844. SITTING UP IN WHEELCHAIR AT SHIFT CHANGE. HAS A WAFFLE CUSHION AND A SEAT BELT ON THE WHEELCHAIR. TRANSFERRED FROM WHEELCHAIR TO BED AT ABOUT 2044 WITH MOD ASSIST OF 2 FOR SAFETY, GAITBELT, AND A SLIDING BOARD. ADMITTED WITH A DIAGNOSIS OF LEFT AKA THAT WAS DONE 07/18/19. ARTHUR WRAP AROUND LEFT STUMP DRY/INTACT. TWO HYDROCODONES GIVEN AT 2109 FOR COMPLAINT OF LEFT STUMP PAIN RATED "9". PAIN REDUCED TO A "7". WILL CONTINUE TO MONITOR. WOUND VAC TO LEFT STUMP INTACT. SNACK PROVIDED.
[2019-07-25 03:21] LABS: HEMATOCRIT 30.2 % (37.0-47.0); MCH 26.8 pg (26.0-34.0); MCV 81.3 fL (80.0-100.0); MPV 8.3 fl. (7.2-11.1); RBC 3.71 mil/uL (4.20-5.00); RDW-CV 18.7 % (10.5-14.5); WBC 7.9 thou/uL (4.0-11.0)
[2019-07-25 03:32] LABS: INR 1.2; PROTIME 12.7 Seconds (9.20-11.50)
[2019-07-25 03:42] LABS: CALCIUM 9.1 mg/dL (8.5-10.1); CREATININE 0.7 mg/dL (0.6-1.3); POTASSIUM 4.2 mmol/L (3.5-5.1)
--- NOTE | 2019-07-25 05:33 | NUR ---
RESTED QUIETLY. USED BEDPAN TO VOID X ONE DURING THE NIGHT. DENIED NEED FOR MORE PAIN MEDICATION. CALL LIGHT WITHIN REACH. HOURLY ROUNDING IN PROGRESS.
[2019-07-25 08:00] VITALS: BP 132/76
--- NOTE | 2019-07-25 12:00 | NUR ---
MET WITH PT TO DISCUSS HOME SITUATION/DC PLANNING. PT GIVEN REHAB PACKET AND INFO, DISCUSSED ROUTINES, WEEKLY TEAM CARE PLAN MEETING AND HAD CONSENT SIGNED. PT IS S/P AMPUTATION. PT LIVES ALONE, HAS FRIENDS THAT ASSIST HER WITH SHOPPING AND SOME LAUNDRY. SHE HAS FAMILY OUT OF TOWN THAT ARE SUPPORTIVE. PT TAKES THE '[employer] BUS IN [place] TO HER APPTS. HER DR IS IN [place] SO SHE CAN GET TO HIS OFFICE. DISCUSSED F/U WITH VASCULAR AT THEIR OFFICE IN [place] IF NEEDED. PT HAS W/C, WALKER, SHOWER BENCH, BSC AND TOILET RISER. SHE HAS HAD HH WITH [facility] AND [facility] IN PAST FOR HH WELL DONE IV ABX IN PAST. PT PLANS TO RETURN HOME AT DC AND IS AGREEABLE TO HH AGAIN, WANTS TO USE [facility]. WILL FOLLOW
--- NOTE | 2019-07-25 13:41 | NUR ---
Nutrition: Pt admitted for Lt AKA. Had Rt AKA in 2008. H/o DM, HTN. She stated that she is feeling fine except for some pain in LE. BG is well-controlled, no albumin recorded. She requested Glucerna era - RD will order. She does not like Jamari orange, but is willing to try Jamari Unflavored to aid in that wound healing at surgical site - RD will order. Eating well. Low to mild nutrition risk.
--- NOTE | 2019-07-25 15:51 | NUR ---
ASSUMMED CARE OF PT AT 0730, PT ALERT AND ORIENTED, PT TRANSFERS FROM BED TO CHAIR BY LIFTING AND MANUEVERING HERSELF, PT STATES DOES NOT WANT TO USE SLIDEBOARD AND DOES MANUEVER HERSELF INDEP[place]ENTLY, PT DOES C/O LEFT STUMP PAIN AND LEFT GROIN PAIN, MEDICATED PER ORDER, WD VAC DC'D PER NURSE PRACTITIONER, RASH NOTED AND PT STATES SHE GETS THIS RASH WHEN SHE IS NERVOUS AND IT IS NOT A NEW RASH, AREA WASHED AND INNER DRY PLACED UNDER BREASTS, PT VOIDS PER COMMODE, NOT BM THIS SHIFT, TAKING FOOD AND FLUIDS WELL, PHYSICIAN INFORMED OF INR AND COUMADIN DOSAGE, [employer] BROUGHT STUMP AGRIBUSINESS PROFESSOR IN AND WILL BE APPLIED TOMMORROW, PARTICIPATED IN ALL THERAPIES, HOURLY ROUNDING COMPLETED, PT REPOSTIIONED EVERY 2 HOURS, WILL CONTINUE TO MONITOR.
[2019-07-25 20:00] VITALS: BP 143/79
--- NOTE | 2019-07-25 23:30 | NUR ---
ASSUMED PT CARE AT 1930. PT ALERT AND ORIENTED X4, POLITE AND COOPERATIVE WITH CARES. DRESSING TO RIGHT STUMP C/D/I. PT TOOK PILLS WITH WATER WITHOUT DIFFICUTLY. PT STAYING UP LATE READING. CALL LIGHT IN REACH. HOURLY ROUNDING IN PROGRESS.
[2019-07-26 04:16] LABS: INR 1.3; PROTIME 13.4 Seconds (9.20-11.50)
[2019-07-26 08:00] VITALS: BP 146/81
--- NOTE | 2019-07-26 14:53 | NUR ---
ASSUMMED CARE OF PT AT 0730, PT TRANSFERS WITH SUPERVSION BY SCOOTING ONTO CHAIR OR COMMODE WHEN PLACED NEXT TO BED, PT DOES COMPLAIN OF LEFT STUMP PAIN, MEDICATED PER ORDER, LIDOCAINE PATCH APPLIED, MANAGER TERMINAL SOCK NOT APPLIED TO STUMP TODAY DUE TO DISCOMFORT, ORDER TO APPLY TOMORROW IF TOLERATED, PT WOULD LIKE A HOSPITAL BED ON DISCHARGE , CASE MANAGEMENT NOTIFIED, PARTICIPATED IN ALL THERAPIES, HOURLY ROUNDING COMPLETED, ASSESSMENT COMPLETE, WILL CONTINUE TO MONITOR.
--- NOTE | 2019-07-26 14:55 | NUR ---
WAS TOLD BY RN THAT PT MAY NEED HOSPITAL BED AT IN. PLACED REQUIRED DOCUMENTATION IN FRONT OF PT'S CHART FOR DR TO REVIEW AND DETERMINE QUALIFICATION. WILL NEED DOCUMENTATION IN PROGRESS NOTE WELL ORDER TO OBTAIN
[2019-07-26 19:30] VITALS: BP 138/68
[2019-07-26 20:09] VITALS: BP 138/68
--- NOTE | 2019-07-27 05:16 | NUR ---
MEDS GIVEN ORDERED. PT WAS ABLE TO TRANSFER HERSELF TO BSC WITH STANDBY ASSIST. LT STUMP PAIN MANAGED WITH NORCO. DRESSING C/D/I. CALL LIGHT WITHIN REACH. HOURLY ROUNDING COMPLETED. WILL CONTINUE TO MONITOR.
[2019-07-27 08:13] LABS: INR 1.4; PROTIME 13.8 Seconds (9.20-11.50)
[2019-07-27 08:16] VITALS: BP 134/75
--- NOTE | 2019-07-27 17:28 | NUR ---
ALERT AND ORIENTED X4. SLIDES TO TRANSFER TO AND FROM BEDSIDE COMMODE OR CHAIR WITH 1 ASSIST AND GAIT BELT. DRESSING DRY AND INTACT OVER LEFT STUMP. HAS RASH ON BACK. USES CALL LIGHT WHEN NEEDING ASSIST. CALL LIGHT WITHIN REACH. BED ALARM AND CHAIR ALARM USED. FALL PRECAUTIONS IN PLACE. FED SELF 50% OF MEALS TODAY.
[2019-07-27 19:20] VITALS: BP 135/81
[2019-07-28 04:45] LABS: INR 1.4; PROTIME 13.9 Seconds (9.20-11.50)
--- NOTE | 2019-07-28 05:17 | NUR ---
PT ALERT AND ORIENTED. VSS ON RA. PT SLEPT WELL THIS SHIFT. PAIN MEDS GIVEN X2 THIS SHIFT. NO BM NOTED THIS SHIFT. PT TO BSC FOR VOIDING. FALL PRECAUTION IN PLACE. CALL LIGHT WITHIN REACH. HOURLY ROUNDINGS MADE. WILL CONTINUE TO MONITOR.
[2019-07-28 07:35] VITALS: BP 149/88
--- NOTE | 2019-07-28 16:35 | NUR ---
ALERT AND ORIENTED X4. PLEASANT AND COOPERATIVE WITH STAFF AND CARES. USING CALL LIGHT WHEN NEEDING ASSIST. TRANSFERS SELF TO AND FROM BEDSIDE COMMODE WITH STAND BY ASSIST NEEDED. CONTINENT OF BOWEL AND BLADDER. PO PAIN MEDICATION HELPFUL WITH LEFT STUMP PAIN. DRESSING REMAINS CLEAN DRY AND INTACT OVER LEFT STUMP INCISION. CALL LIGHT WITHIN REACH. BED AND CHAIR ALARM USED.
[2019-07-28 19:30] VITALS: BP 132/90
[2019-07-29 04:54] LABS: INR 1.3; PROTIME 12.8 Seconds (9.20-11.50)
--- NOTE | 2019-07-29 05:08 | NUR ---
ASSUMED CARES AT 1920. ALERT AND ORIENTED. PLEASANT. C/O LEFT STUMP PAIN. NORCO GIVEN. MOD ASSIST WITH GAIT BELT. SLIDES SELF ONTO BSC. DRESSING TO LEFT STUMP INTACT. PT REFUSED STUMP CLEANER AND DYER. NO OTHER ISSUES OVERNIGHT. CALL LIGHT IN REACH AND BED ALARM ON.
[2019-07-29 07:48] VITALS: BP 142/73
--- NOTE | 2019-07-29 16:25 | NUR ---
ASSUMMED CARE OF PATIENT AT 0730, PT ALERT AND ORIENTED, TRANSFERS BY LIFTING AND SCOOTING TO COMMODE OR WHEELCHAIR SET NEXT TO BED, PT C/O STUMP PAIN, MEDICATED PER ORDER, TAKING FOOD AND FLUIDS WELL, HAD LARGE BM PER COMMODE, VOIDS IN GOOD AMOUNTS, PT HAS RASH AND STATES SHE HAS THIS FREQUENTLY AND DOES NOT NEED MEDICATION, VASCULAR WAREHOUSE STOCKER CHANGED STUMP DRESSING TODAY AND STATED SHE DOES NOT NEED TO WEAR STUMP SLASHER TENDER IF IT IS PAINFUL, PT PARTICIPATED IN ALL THERAPIES, HOURLY ROUNDING COMPLTED, ASSESSMENT COMPLETE, WILL CONTINUE TO MONITOR.
--- NOTE | 2019-07-29 16:27 | NUR ---
SW and Dr oRsas met with pt to review team conference summary and plan for pt to be ready to dc home alone on . Pt in agreement with plan as family support available on . Pt discussed hospital bed, Dr Rosas wrote for need in progress note and SW faxed information to [facility] [place] and will follow up to finalize DME/hospital bed option for dc. JOSE discussed with pt possible need to rent hospital bed if not approved and JOSE will update pt when SW received response from [facility] [place]. SW to discuss team's recommendation of HH and will arrange for pt choice of HH agency.
[2019-07-29 19:30] VITALS: BP 155/72
[2019-07-30 04:38] LABS: INR 1.2; PROTIME 12.5 Seconds (9.20-11.50)
--- NOTE | 2019-07-30 05:09 | NUR ---
ASSUMED PT CARE AT 1930. PT ALERT AND ORIENTED X4, POLITE AND COOPERATIVE WITH CARES. PT STAYED UP LATE WATCHING TELEVISION. NORCO X1 FOR LEFT STUMP PAIN. DRESSING TO LEFT STUMP INTACT. MOD ASSIST WITH GAIT BELT, PT SLIDES HERSELF ONTO BSC. NO STOOL THIS SHIFT. USES CALL LIGHT APPROPRIATELY. HOURLY ROUNDING IN PROGRESS, WILL CONTINUE TO MONITOR.
[2019-07-30 07:35] VITALS: BP 152/90
--- NOTE | 2019-07-30 13:16 | NUR ---
SW attempted to confirm hospital bed available for pt dc on but [facility] closed today and tomorrow. SW to follow up again on to confirm and to arrange follow up services for pt to dc home on .
--- NOTE | 2019-07-30 17:12 | NUR ---
ASSUMED CARE AT 0730. ALERT ORIENTED PLEASANT COOPERATIVE. HX OF L JOSH ARREDONDO. TRANSFERS WITH SBA FROM BED TO BSC TO VOID AND HAD A BM ABLE TO DO HYGEINE AFTER BM AND VOIDING. MEDICATED WITH PRN PAIN MEDS BEFORE THERAPIES AT BREAKFAST MEAL. PARTICIPATING IN THERAPIES THROUGHOUT THE DAY. MEDICATED THIS AFTERNOON FOR LAKA PAIN WITH ULTRAM. ABLE TO USE CALL LIGHT APPROPRIATELY FOR ASSISTANCE. DENIES CONCERNS. DRESSING C/D/I LAKA.
[2019-07-30 19:00] VITALS: BP 137/59
--- NOTE | 2019-07-31 05:39 | NUR ---
PT ALERT AND ORIENTED. VSS ON RA. PAIN MEDS GIVEN X1 THIS SHIFT. PT SLEPT WELL THIS SHIFT. PT TO BSC FOR VOIDNG. CALL LIGHT WITHIN REACH. HOURLY ROUNDINGS MADE. FALL PRECAUTION IN PLACE. WILL CONTINUE TO MONITOR.
[2019-07-31 06:27] LABS: INR 1.3; PROTIME 13.4 Seconds (9.20-11.50)
[2019-07-31 07:55] VITALS: BP 135/70
--- NOTE | 2019-07-31 15:44 | NUR ---
ASSUMMED CARE OF PT AT 0730, PT ALERT AND ORIENTED, PT C/O PAIN IN LEFT STUMP, MEDICATED PER ORDER, DRESSING TO STUMP INCISION C/D/I. PT TRANSFERS BY LIFTING HERSELF AND SCOOTING ONTO COMMODE OR INTO W/C, PT VOIDS IN GOOD AMOUNTS, PT HAD BM THIS AM, PT CONCERNED ABOUT DISCHARGE IN AM, STATES SHE DOES NOT HAVE BED AT HOME SHE GAVE IT TO HER NEPHEW AND CAN NOT GET IT BACK, SHE THOUGHT SHE WAS GETTING A HOSPITAL BED BUT THAT HAS NOT BEEN APPROVED YET, PT ASKED IF SHE CAN BORROW A BED FROM FAMILY OR MAY NEED TO BUY A BED BUT STATES SHE CAN'T GET A BED BY TOMMORROW, DR CURRAN INFORMED OF SITUATION, PT TAKING FOOD AND FLUIDS WELL, HOURLY ROUNDING COMPLETED, ASSESSMENT COMPLETE, WILL CONTINUE TO MONITOR.
[2019-07-31 20:00] VITALS: BP 117/65
--- NOTE | 2019-07-31 21:43 | NUR ---
ASSUMED CARE AT 1930. PATIENT RESTING IN BED TALKING ON PHONE. MOVES VERY WELL IN BED. DRESSING TO LT STUMP C/D/I. TAKES PILLS WHOLE WITH WATER. HAD CAKE FOR HS SNACK. NO C/O PAIN. BEDSIDE COMMODE NEXT TO BED. PATIENT ABLE TO SCOOT FROM BED TO BSC FOR TOILETING. HOURLY ROUNDS CONTINUE. BED ALARM ON. CALL LITE IN REACH.
[2019-08-01 05:13] LABS: INR 1.6; PROTIME 16.2 Seconds (9.20-11.50)
--- NOTE | 2019-08-01 05:55 | NUR ---
SLEPT MOST OF THE NIGHT. TURNS SELF. VOIDED PER BSC ONCE WITH SBA. DOES OWN HYGIENE. MEDICATED FOR PAIN ONCE THIS SHIFT. REFUSES TO WEAR STUMP POWERTRAIN ENGINEER DUE TO PAIN. HOURLY ROUNDS CONTINUE. BED ALARM ON. CALL LITE IN REACH.
[2019-08-01 07:49] VITALS: BP 139/77
[2019-08-01] MEDS ORDERED: LIDODERM1 EACH TP (10:48)
[2019-08-01 11:37] VITALS: BP 139/77
[2019-08-01] MEDS ORDERED: COUMADIN 5 MG TA5 M1 PO (12:18)
[2019-08-01] MEDS ORDERED: NORCO 10-325 T1 EACH PO (12:26)
[2019-08-01 13:06] VITALS: BP 139/77
--- NOTE | 2019-08-01 13:53 | NUR ---
Pt to dc home alone today with HH services to follow. SW confirmed hospital bed approved [facility] and pt coordinating delivery to pt home. JOSE arranged pt preference of HH with [facility] ph [phone]
--- NOTE | 2019-08-01 14:13 | NUR ---
ASSUMMED CARE OF PT AT 0730, PT ALERT AND ORIENTED, TRANSFERS BY SCOOTING ONTO CHAIR OR COMMODE FROM BED, TAKING FOOD AND FLUIDS WELL, BM X 1 THIS SHIFT, C/O PAIN IN LEFT STUMP, MEDICATED PER ORDER, DRESSING CHANGED TO LEFT STUMP, ORDERS RECIEVED FOR DISCHARGE, PT TO HAVE HOSPITAL BED DELIVERED TODAY, PT INSTRUCTED ON HOME MEDICATIONS, FOLLOW UP APPTS, HOME HEALTH, SCRIPTS GIVEN TO PT, PT DISCHARGED WITH PT FOR CAR TRANSFER, BELONGINGS SENT WITH PT, PT DISCHARGED WITH BROTHER TO HOME.
== END 2019-08-01 14:00 | disposition home health service (06) | DRG 300 ==
LOC: M.REH 15:34
PROVIDERS: Nurse Practitioner; ADMIT Physical Medicine & Rehabilitation
DX: E11.51 Type 2 diabetes mellitus with diabetic peripheral angiopathy without gangrene (principal); D62 Acute posthemorrhagic anemia; E87.6 Hypokalemia; I65.29 Occlusion and stenosis of unspecified carotid artery; E78.5 Hyperlipidemia, unspecified; F32.9 Major depressive disorder, single episode, unspecified; I12.9 Hypertensive chronic kidney disease with stage 1 through stage 4 chronic kidney disease, or unspecified chronic kidney disease; N18.3 Chronic kidney disease, stage 3 (moderate); E11.621 Type 2 diabetes mellitus with foot ulcer; I70.208 Unspecified atherosclerosis of native arteries of extremities, other extremity; E11.22 Type 2 diabetes mellitus with diabetic chronic kidney disease; M81.0 Age-related osteoporosis without current pathological fracture; L30.9 Dermatitis, unspecified; Z96.1 Presence of intraocular lens; Z86.718 Personal history of other venous thrombosis and embolism; Z95.820 Peripheral vascular angioplasty status with implants and grafts; Z79.01 Long term (current) use of anticoagulants; Z89.611 Acquired absence of right leg above knee; Z98.42 Cataract extraction status, left eye; Z89.612 Acquired absence of left leg above knee; Z88.0 Allergy status to penicillin; Z88.1 Allergy status to other antibiotic agents; Z91.041 Radiographic dye allergy status; Z88.8 Allergy status to other drugs, medicaments and biological substances; Z98.41 Cataract extraction status, right eye; Z90.49 Acquired absence of other specified parts of digestive tract